=== PATIENT | female | born 1950 | race Caucasian/White ===

== ENCOUNTER → 2016-08-19 | Outpatient (CLI) | payer MEDICARE ==
[~2016-08-19] MED LIST: ASPIRIN 81 LOW81 MG PO; ATORVASTATIN CA10 MG PO; AZELASTINE HCL0.1 %; CALCIUM CARBON500 MG PO; EXFORGE1 TA1 PO; FEXOFENADINE H180 MG PO; FLUTICASONE PR50 MCG; IPRATROPIUM BROMIDE/ IN; JANUVIA100 MG PO; LEVEMIR FL100 UNIT/M SC; METFORMIN HCL500 MG PO; NOVOLOG PE100 UNITS/ SC; ONDANSETRON ODT4 MG PO; PROAIR HFA IN; SINGULAIR10 MG PO; SYMBICORT1 AE1; TOPROL XL50 MG PO; VITAMIN B121000 CR PO; VITAMIN D-31000 UNIT PO
== END ==
LOC: LAB SRH 17:17
DX: I10 Essential (primary) hypertension (principal); R42 Dizziness and giddiness
CPT/HCPCS: 90047; 90074

== ENCOUNTER 2016-10-24 13:31 | Outpatient (CLI) | payer MEDICARE ==
--- NOTE | 2016-10-24 14:17 | DIAGNOSTIC IMAGING REPORT ---
PROCEDURE: DEXA BONE DENSITY STUDY CLINICAL INDICATION: OSTEOPENIA COMPARISON: DEXA dated 09/12/2014 FINDINGS: LUMBAR SPINE: Bone mineral density 0.909 g/cm2, T score -1.3 osteopenia which represents a 2.4% improvement from the previous study LEFT HIP: Bone mineral density 0.761 g/cm2, T score -1.5 osteopenia which represents a 3.4% decrease from the previous study LEFT FEMORAL NECK: Bone mineral density 0.643 g/cm2, T score -1.9 osteopenia which represents a a 10.1% decrease from the previous study FRACTURE RISK CALCULATION ( when applicable): 10-year fracture risk of a major osteoporotic fracture 4.4% and of a hip fracture 0.6% (T score greater or equal to -1.0 to: NORMAL) (T score from -1.1 to -2.4: OSTEOPENIA) (T score ess than or equal to -2.5: OSTEOPOROSIS) IMPRESSION: 1. Osteopenia spine hip and femoral neck. 2. 2.4% improvement in the lumbar spine, 3.4 and 10.1% decrease in the hip and femoral neck bone mineral density.
--- NOTE | 2016-10-24 15:11 | DIAGNOSTIC IMAGING REPORT ---
PROCEDURE: MG UNILAT SCREEN-RIGHT W/CAD INDICATION: SCREENING,RT. Left mastectomy. TECHNIQUE: Digital right CC and oblique views were obtained. COMPARISON: Right mammogram 10/20/2015, 09/30/2014 and 09/29/[address] [facility] breast [facility].. FINDINGS: Computed aided detection applied. Moderately dense pattern. Scattered dystrophic and coarse benign calcifications. No suspicious masses or pleomorphic microcalcifications. No significant interval change. IMPRESSION: 1. Negative mammogram. Result Code: 1- Negative.
--- NOTE | 2016-10-24 15:11 | DIAGNOSTIC IMAGING REPORT ---
PROCEDURE: MG UNILAT SCREEN-RIGHT W/CAD INDICATION: SCREENING,RT. Left mastectomy. TECHNIQUE: Digital right CC and oblique views were obtained. COMPARISON: Right mammogram 10/20/2015, 09/30/2014 and 09/29/2013 from [facility].. FINDINGS: Computed aided detection applied. Moderately dense pattern. Scattered dystrophic and coarse benign calcifications. No suspicious masses or pleomorphic microcalcifications. No significant interval change. IMPRESSION: 1. Negative mammogram. Result Code: 1- Negative.
== END 2016-10-24 23:00 ==
LOC: XR SRH 13:31 → MAM SRH 16:00 → XR SRH 23:00
DX: M85.852 Other specified disorders of bone density and structure, left thigh (principal); M85.88 Other specified disorders of bone density and structure, other site; Z12.31 Encounter for screening mammogram for malignant neoplasm of breast; Z85.3 Personal history of malignant neoplasm of breast